=== PATIENT | male | born 1960 | race African-American/Black ===

== ENCOUNTER 2017-01-12 10:42 | Emergency (ER) | payer OTHER ==
[~2017-01-12] VITALS: Ht 170.2 cm; Wt 70.8 kg
[~2017-01-12 10:42] MED LIST: IBUPROFEN600 MG ORAL
[2017-01-12 11:08] LABS: BASOPHILS % (AUTO) 0.6 % (0.0-2.0); EOSINOPHILS % (AUTO) 0.2 % (0.0-3.0); LYMPHOCYTES % (AUTO) 17.1 % (20.0-45.0); MEAN CORPUSCULAR HEMOGLOBIN 28.7 PG (27.0-31.0); MEAN CORPUSCULAR HGB CONC 32.3 G/DL (32.0-36.0); MEAN CORPUSCULAR VOLUME 89 FL (80-99); MEAN PLATELET VOLUME 6.9 FL (6.5-10.1); MONOCYTES % (AUTO) 6.1 % (1.0-10.0); PLATELET COUNT 349 K/UL (150-450); RED BLOOD COUNT 6.14 M/UL (4.70-6.10); RED CELL DISTRIBUTION WIDTH 13.4 % (11.6-14.8); WHITE BLOOD COUNT 10.4 K/UL (4.8-10.8)
[2017-01-12 11:17] LABS: ALANINE AMINOTRANSFERASE 31 U/L (12-78); ALBUMIN/GLOBULIN RATIO 0.6 (1.0-2.7); ALCOHOL < 3 mg/dL; ASPARTATE AMINO TRANSFERASE 37 U/L (15-37); CALCIUM 9.4 MG/DL (8.5-10.1); CARBON DIOXIDE 24 MMOL/L (21-32); CREATININE 1.2 MG/DL (0.55-1.30); GLOMERULAR FILTRATION RATE > 60 mL/min (>60); TOTAL PROTEIN 8.3 G/DL (6.4-8.2)
[2017-01-12 11:29] LABS: CHLORIDE 98 MMOL/L (98-107); POTASSIUM 3.7 MMOL/L (3.5-5.1); SODIUM 139 MMOL/L (136-145)
[2017-01-12] MEDS ORDERED: Dexamethasone 4mg/ml vial IVP ONE (11:30)
[2017-01-12 11:31] LABS: ACETAMINOPHEN < 4 MCG/ML (10-30)
--- NOTE | 2017-01-12 11:31 | Diagnostic Imaging Report ---
Indications: Altered level of consciousness Technique: Spiral acquisitions obtained through the brain. Angled axial and coronal 5 x 5 mm slices were reconstructed. Total dose length product 1488 mGycm. CTDI vol(s) 70 mGy. Dose reduction achieved using automated exposure control Comparison: None Findings: At least 2 masses are seen in the high right parietal lobe. One is adjacent to the parasagittal cortex, measures 2.4 cm in diameter. One is centered in the posterior deep white matter, measures 2.5 cm long axis dimension. Both of these are isoattenuating with pacheco matter, demonstrates central low-attenuation. There is extensive vasogenic edema throughout the right convexity deep white matter. Subcentimeter lesions, likewise isoattenuating to pacheco-white matter, are seen within the right temporal lobe, and there is extensive vasogenic edema of the right temporal lobe. A 15 mm lesion is seen within the left temporal pacheco-white junction, and there is considerable vasogenic edema within the left temporal lobe. There may be one or more tiny lesions within the left frontal deep white matter. A 13 mm lesion is seen adjacent to the right hypothalamus, and there is considerable vasogenic edema within the right internal capsule and cerebral peduncle. There is considerable mass effect. Edema is asymmetric, much more on the right than on the left, so there is as 8 mm of [id number] midline shift. There is complete obliteration of the cerebral sulci. The basilar cisterns remain open. A right lateral ventricle is attenuated. The left lateral ventricle appears somewhat dilated, suggesting hydrocephalus related to compression of the foramina of Butler. There is suggestion of some edema within the cerebellar deep white matter, although discrete lesions are not demonstrated. No acute hemorrhage. Other than the above-described abnormalities, pacheco-white differentiation is preserved. The calvarium is intact. Mastoids are clear. The sinuses are clear. The orbits are unremarkable Impression: Multiple cerebral, basal ganglia, and likely cerebellar mass lesions with extensive vasogenic edema as detailed above. Lesions are more numerous and edema is more extensive in the right hemisphere, resulting in right to left midline shift. There is also obliteration of the cerebral sulci. There is likely left lateral ventricular hydrocephalus due to foramen of Butler compression. Findings most likely are due to multiple cerebral metastases Negative for acute intracranial bleed Recommend contrast MRI for better characterization Findings discussed by phone with Dr. Marin at the time of interpretation. The CT scanner at [facility] is accredited by the [employer] and the scans are performed using protocols designed to limit radiation exposure to as low as reasonably achievable to attain images of sufficient resolution adequate for diagnostic evaluation.
[2017-01-12 11:48] LABS: REFLEX LACTIC ACID YES OR NO YES
--- NOTE | 2017-01-12 12:24 | Emergency Room Report ---
History of Present Illness General Chief Complaint: Altered Mental Status Source: Patient, Family Member, Medical Record Present Illness HPI This is a 56year-old male brought in by EMS after altered mental status. Patient gradual onset of symptoms. Patient had been gradually more confused per patient's father. Patient had recently had blood drawn from [facility]. The patient has prior history of any kind of fever. He was found to be in a very poorly kept apartment. The patient had been having any fever or cough. History is limited by patient's mental status Allergies: Coded Allergies: No Known Allergies (Unverified , 01/12/17) Patient History Past Medical History: see triage record Reviewed Nursing Documentation: PMH: Agreed, PSxH: Agreed Review of Systems All Other Systems: negative except mentioned in HPI Physical Exam Vital Signs Date Time Temp Pulse Resp B/P (MAP) Pulse Ox O2 Delivery O2 Flow Rate FiO2 01/12/17 10:37 97.2 113 16 153/85 100 Room Air Sp02 EP Interpretation: reviewed, normal General Appearance: normal inspection, well appearing, no apparent distress, alert Head: atraumatic Eyes: bilateral eye other - pinpoint pupils bilaterally ENT: normal ENT inspection, hearing grossly normal, normal voice Neck: normal inspection, full range of motion, supple, no bony tend Respiratory: normal inspection, lungs clear, normal breath sounds, no respiratory distress, no retraction, no wheezing Cardiovascular #1: regular rate, rhythm, no edema Gastrointestinal: normal inspection, normal bowel sounds, non tender, soft, no guarding, no hernia Genitourinary: no CVA tenderness Musculoskeletal: normal inspection, back normal, normal range of motion Neurologic: normal inspection, alert, oriented x3, responsive, motor weakness, other - confabulation Psychiatric: normal inspection, judgement/insight normal, mood/affect normal Skin: normal inspection, normal color, no rash Procedures Critical Care Time Critical Care Time Patient had a critical medical condition which untreated could potentially result in life or limb threatening injury. Total critical care time excluding procedures approximately 45 minutes. Medical Decision Making Diagnostic Impression: Primary Impression: Altered mental status Additional Impressions: Brain tumor Hydrocephalus ER Course Patient presented for generalized weakness and altered mental status.Differential diagnosis included but was not limited to ischemic stroke, subarachnoid hemorrhage, hypoglycemia, spinal cord injury, neurodegenerative disorder, urinary tract infection, hypoxemia.Because of complexity of patient's case laboratory testing and imaging studies were ordered. CT the head read by radiology showed multiple brain masses consistent with metastases. See radiology report for full reading. Patient started on IV fluids.Patient was given IV Decadron. He was given IV Keppra for seizure prophylaxis. Mannitol will be deferred to further evaluation at [facility]. Patient's case was discussed with Dr. Jackson for transfer at [facility] Labs Test 01/12/17 10:45 01/12/17 10:58 01/12/17 11:15 01/12/17 12:11 White Blood Count 10.4 K/UL (4.8-10.8) Red Blood Count 6.14 M/UL (4.70-6.10) Hemoglobin 17.6 G/DL (14.2-18.0) Hematocrit 54.6 % (42.0-52.0) Mean Corpuscular Volume 89 FL (80-99) Mean Corpuscular Hemoglobin 28.7 PG (27.0-31.0) Mean Corpuscular Hemoglobin Concent 32.3 G/DL (32.0-36.0) Red Cell Distribution Width 13.4 % (11.6-14.8) Platelet Count 349 K/UL (150-450) Mean Platelet Volume 6.9 FL (6.5-10.1) Neutrophils (%) (Auto) 76.0 % (45.0-75.0) Lymphocytes (%) (Auto) 17.1 % (20.0-45.0) Monocytes (%) (Auto) 6.1 % (1.0-10.0) Eosinophils (%) (Auto) 0.2 % (0.0-3.0) Basophils (%) (Auto) 0.6 % (0.0-2.0) Sodium Level 139 MMOL/L (136-145) Potassium Level 3.7 MMOL/L (3.5-5.1) Chloride Level 98 MMOL/L (98-107) Carbon Dioxide Level 24 MMOL/L (21-32) Blood Urea Nitrogen 25 mg/dL (7-18) Creatinine 1.2 MG/DL (0.55-1.30) Estimat Glomerular Filtration Rate > 60 mL/min (>60) Glucose Level 205 MG/DL (74-106) Calcium Level 9.4 MG/DL (8.5-10.1) Total Bilirubin 1.0 MG/DL (0.2-1.0) Aspartate Amino Transf (AST/SGOT) 37 U/L (15-37) Alanine Aminotransferase (ALT/SGPT) 31 U/L (12-78) Alkaline Phosphatase 108 U/L (46-116) Troponin I 0.002 ng/mL (0.000-0.056) Total Protein 8.3 G/DL (6.4-8.2) Albumin 3.1 G/DL (3.4-5.0) Globulin 5.2 g/dL Albumin/Globulin Ratio 0.6 (1.0-2.7) Salicylates Level 5.4 ug/mL (2.8-20) Acetaminophen Level < 4 MCG/ML (10-30) Serum Alcohol < 3 mg/dL Ammonia 13 umol/L (11-32) Urine Opiates Screen Negative (NEGATIVE) Urine Barbiturates Screen Negative (NEGATIVE) Phencyclidine (PCP) Screen Negative (NEGATIVE) Urine Amphetamines Screen Negative (NEGATIVE) Urine Benzodiazepines Screen Negative (NEGATIVE) Urine Cocaine Screen Negative (NEGATIVE) Urine Marijuana (THC) Screen Negative (NEGATIVE) Last Vital Signs Date Time Temp Pulse Resp B/P (MAP) Pulse Ox O2 Delivery O2 Flow Rate FiO2 01/12/17 10:37 97.2 113 16 153/85 100 Room Air Status: unchanged Disposition: XFER SHT-TRM HOSP Condition: Serious Referrals: CORINNE JACKSONREFERRING (PCP) Mata Marin Jan 12, 2017 12:24
[2017-01-12 12:26] VITALS: BP 123/62
[2017-01-12] MEDS ORDERED: levETIRAcetam 1,000mg/NS100ml 100 ML IVPB ONE (14:15)
[2017-01-12 15:00] VITALS: BP 120/71
[2017-01-12 15:01] LABS: KETONES,URINE 4+ (NEGATIVE); LEUKOCYTE ESTERASE ,URINE 1+ (NEGATIVE); NITRITE,URINE NEGATIVE (NEGATIVE); PH,URINE 6 (4.5-8.0); PROTEIN,URINE 2+ (NEGATIVE); UROBILINOGEN,URINE 4 MG/DL (0.0-1.0)
[2017-01-12 15:20] VITALS: BP 133/65
[2017-01-12 15:30] LABS: APPEARANCE,URINE CLOUDY; BACTERIA,URINE FEW /HPF; RBC,URINE 0-2 /HPF (0 - 0); SQUAMOUS EPITHELIAL CELL,UR FEW /LPF (NONE/OCC)
[2017-01-12 15:34] LABS: HYALINE CASTS, URINE 0-2 /LPF
[2017-01-12 15:35] LABS: COARSE GRANULAR CASTS,URINE 0-2 /LPF; FINE GRANULAR CASTS,URINE 0-2 /LPF
[2017-01-12 15:37] LABS: MUCUS,URINE MODERATE /LPF (NONE/OCC)
== END 2017-01-12 15:25 | disposition short-term general hospital (02) ==
LOC: EDBD 10:42 → EMR 11:10
DX: R41.82 Altered mental status, unspecified (principal); D49.6 Neoplasm of unspecified behavior of brain; G91.9 Hydrocephalus, unspecified
CPT/HCPCS: 36415; 70450; 80053; 80307; 80329; 81003; 82140; 82550; 83605; 84484; 85025; 96361; 96374; 99291; J1100; J1953